=== PATIENT | female | born 1955 | race Caucasian/White ===

== ENCOUNTER 2017-08-12 06:19 | Inpatient (IN) | payer OTHER ==
[2017-08-12] VITALS (7 sets, daily range): BP systolic 112–136; BP diastolic 69–88
[~2017-08-12] VITALS: Ht 160 cm; Wt 68.0 kg
--- NOTE | 2017-08-12 12:10 | NUR ---
RECEIVED PT VIA BED FROM RECOVERY ROOM AWAKE AND ALERT. TEMP 97.6. TELE #36 PLACED SINUS RHYTHM 77. RESP 18 EVEN. OXYGEN 2L NC IN PLACE. PULSE OX 100%. ABD SOFT, LOUISE CATH DRAINS YELLOW URINE. NO EDEMA. PULSES PRESENT. SCD IN PLACE. HEMOVAC INPLACE TO RIGHT KNEE. DRESSING CDI TO RIGHT KNEE. C/O "PAIN 18/10". CALL TO DR DE ANDA TO VERIFY PAIN MEDICATION. FAMILY AT BEDSIDE. CALL LIGHT IN REACH.
--- NOTE | 2017-08-12 12:35 | NUR ---
IVF NORMAL SALINE STARTED AT 100CC/HR. IV CLEOCIN COMPLETED FROM RECOVERY ROOM. MED WITH DILAUDID 1MG IVP ORDERED FOR PAIN. CALL LIGHT IN REACH. WILL CONTINUE TO MONITOR.
--- NOTE | 2017-08-12 13:00 | NUR ---
PT MORE RELAXED. STATES "PAIN LEVEL DOWN TO 10/10 SLOWLY COMING DOWN." WILL CONTINUE TO MONITOR.
--- NOTE | 2017-08-12 14:23 | NUR ---
PT CONTINUES TO C/O RIGHT KNEE POST OP DISCOMFORT NOT RELIEVED BY MEDICATION GIVEN. MED BY RAMIREZ STUBBS ORDERED. WILL CONTINUE TO MONITOR.
--- NOTE | 2017-08-12 15:08 | NUR ---
PT CONTINUES TO C/O PAIN TO RIGHT KNEE POST OP "SHOOTING PAIN 07/14." DR JOSE HERE. REVIEWED PAIN MEDICATION REGIMEN. MED WITH TORADOL 30MG IVP ORDERED. FAMILY AT BEDSIDE. INSTRUCTED WITH USE OF INCENTIVE SPIROMETER. GOOD RETURN DEMO TO 1500 INITIALLY. STATES "HAS ASTHMA." TRAPEZE SET UP. AWAITING CPM DEVICE.
--- NOTE | 2017-08-12 15:31 | NUR ---
PT CONTINUES TO REPORT "SHOOTING PAIN 07/14. NO RELIEF FROM OTHER MEDS." DR JOSE HERE. MED WITH PERCOCET PO ORDERED. TAKING WATER AND SALTINE CRACKERS. REFUSES FOOD AT THIS TIME. IV CONTINUES PATENT. HISTORY OBTAINED. CALL LIGHT IN REACH.
--- NOTE | 2017-08-12 16:36 | NUR ---
PT CONTINUES TO C/O POST OP RIGHT KNEE "PAIN 10/10 SHO[address] PAIN UP LEG." DR JOSE HERE. DILAUDID INCREASED. MED WITH DILAUDID 2MG IVP AT THIS TIME. UPDATED DR JOSE ON PT STATUS. HEMOVAC DRAINAGE 200CC SINCE SURGERY, NONE IN LAST 2 HOURS. LOUISE DRAINING WELL. FAMILY REQUESTS SLEEPING PILL FOR PT FOR TONIGHT. USES INCENTIVE SPIROMETER WELL.
--- NOTE | 2017-08-12 16:55 | NUR ---
P.T. NOTES APPLIED CPM (R)LE, SETTING AT 0-20 deg FOR NOW, UNABLE TO TOLERATE 30 deg DUE TO PAIN, PRE MEDICATED; NURSE AWARE; ENDORSED TO NURSING TO TURN ON CPM WHEN Pt IS AGREEABLE & PAIN MORE CONTROLLED, REMOVE CPM AROUND 10pm; DAUGHTER (ELMER) & Pt EDUC ON CPM USE; CALL TORRES, PHONE, TABLE IN REACH; OHT SET UP DONE BY MD RESIDENT; BED ALARM ON; SCDs RE APPLIED; FOLLOW UP TOMORROW. CPM SETUP,PVE(ASSIST,SAFETY)
--- NOTE | 2017-08-12 17:00 | NUR ---
PT RESTING DROWSY BUT AROUSABLE. ABLE TO USE INCENTIVE SPIROMETER WITH ENCOURAGEMENT. REPORTS "PAIN BETTER, NOW DOWN TO 8/10." CPM TURNED ON AT THIS TIME WITH 20 DEGREES FLEXION. DTR AT BEDSIDE. CALL LIGHT IN REACH.
--- NOTE | 2017-08-12 18:27 | NUR ---
PT REPORTS "PAIN DOWN TO 5/10. C/O MILD NAUSEA." NO EMESIS. MED WITH ZOFRAN 4MG IVP. HR=83. CD=074/78. FAMILY AT BEDSIDE. TAKING WATER AND SALTINE CRACKERS. SOUP ORDERED. JELLO GIVEN. CALL LIGHT IN REACH.
--- NOTE | 2017-08-12 18:40 | NUR ---
PT REPORTS "NAUSEA A LITTLE BETTER, TAKING SIPS OF WATER AND SOUP." TC TO DR DE ANDA TO UPDATE PT STATUS. TO KEEP CPM SETTINGS 0 DEGREES EXTENSION AND 60 DEGREES FLEXION. TURN OFF WHEN ASLEEP. KEEP HEMOVAC EXPANDED, NO SUCTION. CPM INCREASED AT THIS TIME TO 0-40 DUE TO INCREASED PAIN WITH FLEXION. WILL INCREASE WITH NEXT PAIN MEDICATION ADMINISTRATION. PT IN AGREEMENT. AM LABS ORDERED. CALL LIGHT IN REACH.
--- NOTE | 2017-08-12 19:40 | NUR ---
PT SEEN, RESTING IN BED, ALERT AND ORIENTED, DENIES HEADACHE OR DIZZINESS, BREATHING EVEN AND UNLABORED, NO SOB, LUNG SOUNDS CLEAR, ON ROOM AIR WITH NO RESP DISTRESS NOTED, IS-2000ML, IVF INFUSING WELL, ON TELE#36 NSR, DENIES CHEST PAIN, PULSES PALPABLE, NO EDEMA NOTED, 08/12 S/P RT KNEE REPLACEMENT WITH AZEB WRAP AND DRESSING, CPM MACHINE-0 TO 40 DEGREE, HEMOVAC IN PLACE DRAINING BLOODY OUTPUT, ABD ROUND WITH ACTIVE BS, NO BM AT THIS TIME, DENIES ABD PAIN, LOUISE VIA GRAVITY DRAINING YELLOW URINE, FAMILY AT BEDSIDE, TRAPEZE IN PLACE, NO DISTRESS NOTED, WILL KEEP TO MONITOR.
--- NOTE | 2017-08-12 20:50 | NUR ---
[employer] MEMBER CALLED THAT PT HAD 1.5 SECS PAUSES ON TELE MONITOR, WENT TO PT'S ROOM, PT ALERT AND ORIENTED X 4 BUT C/O OF DIZZINESS AFTER MEDICATED WITH DILAUDID 2MG VIA IVP, MADE DR ROBLEDO AWARE, DILAUDID CHANGED TO 1.5MG PER PT REQUESTED.
--- NOTE | 2017-08-12 22:00 | NUR ---
INCREASED PT'S CPM MACHINE TO 60 DEGREE, PT TOLERATED WELL, WILL KEEP TO MONITOR.
--- NOTE | 2017-08-13 | NUR ---
TURN OFF CPM MACHINE AT THIS TIME, PT ASLEEP BUT EASILY AROUSABLE, DENIES ANY PAIN OR DISCOMFORT AT THIS TIME, PT REFUSED TO REMOVE CPM MACHINE STATED THAT SHE FEELS COMFORTABLE WITH 0 DEGREE ON CPM, NO DISTRESS NOTED, WILL KEEP TO MONITOR.
--- NOTE | 2017-08-13 02:08 | NUR ---
PT AWAKE AND C/O OF RT KNEE PAIN, PERCOCET 1 TAB VIA ORAL ADMINISTERED.
--- NOTE | 2017-08-13 02:30 | NUR ---
PT CALLED AND STATED THAT RT KNEE PAIN IS AT 20/10 AFTER MEDICATED WITH PERCOCET PO, BP-133/66, HR-90, SPO2-96%, DILAUDID 1.5MG VIA IVP ADMINISTERED AND ZOFRAN 4MG VIA IVP FOR NAUSEOUS, ICE PACK APPLIED.
--- NOTE | 2017-08-13 03:40 | NUR ---
ROUNDS MADE, PT AWAKE AND RESTING IN BED, DENIES ANY PAIN OR DISCOMFORT MEDICATED WITH DILAUDID IVP, NO DISTRESS NOTED, WILL KEEP TO MONITOR.
[2017-08-13 06:21] VITALS: BP 109/62
--- NOTE | 2017-08-13 06:33 | NUR ---
PT AWAKE AND C/O OF PAIN TO RT KNEE SURGERY SITE, DILAUDID 1.5MG AND ZOFRAN ADMINISTERED VIA IVP, RE-STARTED CPM MACHINE 0-35 DEGREE PER PT'S REQUEST, LOUISE CARE GIVEN, TOTAL OUTPUT FROM HEMOVAC 100ML BLOODY COLOR, SCD TO BLE, FAMILY AT BEDSIDE, WILL KEEP TO MONITOR.
--- NOTE | 2017-08-13 07:05 | NUR ---
BEDSIDE HANDOFF. CPM 0-45 WAS INCREASED TO 0-50. ALERT AND ORIENTED. AZEB WRAP CDI. HEMOVAC NOT TO SUCTION. GOOD CMS TO BLE. ICE PACKS IN PLACE AROUND KNEE. IVF NS @ ![address] LOUISE TO GRAVITY. TELE 36. FAMILY BEDSIDE. CALL LIGHT WITHIN REACH.
[2017-08-13 07:26] LABS: BASOPHIL % 0.2 % (0-2); PLATELET COUNT 251 x10^3mcL (130-400); RED CELL DISTRIBUTION WIDTH 12.5 % (11.5-14.5)
--- NOTE | 2017-08-13 07:35 | NUR ---
CPM INCREASED 0-55. TOLERATING.
[2017-08-13 07:52] LABS: ALKALINE PHOSPHATASE 47 U/L (46-116); ALT/SGPT 31 U/L (14-59); AMYLASE 32 U/L (25-115); AST/SGOT 20 U/L (15-37); BILIRUBIN TOTAL 0.68 mg/dL (0.20-1.00); CALCIUM 7.7 mg/dL (8.5-10.1); CARBON DIOXIDE 26.1 mmol/L (21-32); CHLORIDE SERUM 100 mmol/L (98-107); CHOLESTEROL 170 mg/dL (<200); CHOLESTEROL/HDL RATIO 2.9; CREATININE SERUM 0.7 mg/dL (0.6-1.0); GFR1 > 60 mL/min; GLUCOSE SERUM 117 mg/dL (74-106); HDL CHOLESTEROL 58 mg/dL (40-60); LIPASE 80 IU/L (73-393); MAGNESIUM 1.8 mg/dL (1.8-2.4); PHOSPHOROUS 3.4 mg/dL (2.5-4.9); POTASSIUM SERUM 4.2 mmol/L (3.5-5.1); SODIUM SERUM 132 mmol/L (136-145); TRIGLYCERIDES 75 mg/dL (<150)
[2017-08-13 07:57] LABS: ALBUMIN 2.9 g/dL (3.4-5.0); TOTAL PROTEIN, SERUM 5.8 g/dL (6.4-8.2)
[2017-08-13 08:16] LABS: FREE T4 1.7 ng/dL (0.76-1.46); FREE THYROXINE INDEX 4.7 ug/dL (1.4-4.5); T3 TOTAL 0.86 ng/mL; T4(THYROXINE) 11.2 ug/dL (4.7-13.3)
[2017-08-13 09:53] VITALS: BP 121/59
--- NOTE | 2017-08-13 10:03 | NUR ---
CPM increased to 60, patient tolerating well. administered zofran and diluadid prn as ordered for nausea and pain of 9/10. Saucedo removed, patient tolerated well. Educated patient to report any painful urination or discomfort. bed in lowest position, call light within reach, 2 rails up. family at bedside.
--- NOTE | 2017-08-13 10:16 | NUR ---
HEPLOCKED TO WORK WITH PT.
--- NOTE | 2017-08-13 10:27 | NUR ---
UP WITH PT, WALKED A FEW STEPS, NAUSEAOUS, UP IN RECLINER.
--- NOTE | 2017-08-13 10:52 | NUR ---
REQUESTING TO GO BACK TO BED, PT MADE AWARE.
--- NOTE | 2017-08-13 11:13 | NUR ---
PATIENT AMBULATED KAUR WITH PT. VOMITTED AFTERWARDS. PHYSICAL THERAPY STATED REMOVES CPM MACHINE TO LET HER "REST" AND WILL COME BACK AFTER 1200 TO PUT HER BACK ON.
--- NOTE | 2017-08-13 12:23 | NUR ---
REQUESTED ANOTHER ANTI-EMETIC. SIDE EFFECTS OF PHENERGAN EXPLAINED, DECIDED TO STAY WITH ZOFRAN.
--- NOTE | 2017-08-13 13:19 | NUR ---
DR COLMENARES SAW PATIENT. DC'D HEMOVAC. PT TOLERATED WELL. WILL ASSESS FOR PAIN AND MEDICATE PRN.
[2017-08-13 13:48] VITALS: BP 123/29
--- NOTE | 2017-08-13 14:30 | NUR ---
PT IN TO WORK WITH PATIENT. CPM SETTING NOW 0-70.
--- NOTE | 2017-08-13 14:57 | NUR ---
PT NOTE 1415 INSERVICE FOR RNs ON PROPER AND SAFE SET-UP AND REMOVAL OF CPM, INCLUDING PROPER JOINT ALIGNMENT TO CPM, SAFE TECHNIQUE IN PAUSING MACHINE, PROPER HEIGHT OF HEAD OF BED WHILE MACHINE IS ON, SIDERAIL UP, AND LOCK BUTTON FOR ELEVATING LEGS; UNDERSTANDING NOTED. PVE(1)
[2017-08-13 17:45] VITALS: BP 122/59
--- NOTE | 2017-08-13 18:28 | NUR ---
PT AWAKE AND ORIENTED. REINFORCED TEACHING ON IS USE. PT STATED PAIN WAS 4/10, MEDICATED WITH DILUADID PRN ORDERED. FAMILY AT BEDSIDE, BED IN LOWEST POSITION, CALL LIGHT WITHIN REACH, 2 RAILS UP. DENIES NUMBNESS IN LOWER EXTREMITIES, ABLE TO WIGGLE TOES.
--- NOTE | 2017-08-13 19:10 | NUR ---
PT SEEN, RESTING IN BED, ALERT AND ORIENTED, DENIES HEADACHE OR DIZZINESS, BREATHING EVEN AND UNLABORED, NO SOB, LUNG SOUNDS CLEAR, ON ROOM AIR WITH NO RESP DISTRESS NOTED, IS-2000ML, IVF INFUSING WELL, MEDSURG PT, DENIES CHEST PAIN, PULSES PALPABLE, NO EDEMA NOTED, 08/12 S/P RT KNEE REPLACEMENT WITH AZEB WRAP AND DRESSING, CPM MACHINE-0 TO 70 DEGREE, ABD ROUND WITH ACTIVE BS, NO BM AT THIS TIME, DENIES ABD PAIN, VOIDING FREELY WITH BEDPAN, TRAPEZE IN PLACE, NO DISTRESS NOTED, WILL KEEP TO MONITOR.
[2017-08-13 21:10] VITALS: BP 112/54
[2017-08-13 21:15] VITALS: BP 115/73
--- NOTE | 2017-08-13 23:26 | NUR ---
ASSISTED PT TO USE BEDPAN, PERICARE GIVEN, CPM MACHINE TURN OFF AT THIS TIME, PERCOCET 1 TAB VIA ORAL ADMINISTERED.
[2017-08-14 06:18] VITALS: BP 103/35
--- NOTE | 2017-08-14 06:38 | NUR ---
PT AWAKE AND RESTING IN BED, SLEPT ON AND OFF WHOLE NIGHT, IVF INFUSING WELL, ICE PACK IN PLACE, CONDITION NO CHANGE, NO DISTRESS NOTED, WILL KEEP TO MONITOR.
[2017-08-14 07:23] LABS: CARBON DIOXIDE 29.2 mmol/L (21-32); CHLORIDE SERUM 102 mmol/L (98-107); CREATININE SERUM 0.8 mg/dL (0.6-1.0); GFR1 > 60 mL/min; GLUCOSE SERUM 94 mg/dL (74-106); MAGNESIUM 2.2 mg/dL (1.8-2.4); PHOSPHOROUS 1.9 mg/dL (2.5-4.9); POTASSIUM SERUM 3.8 mmol/L (3.5-5.1); SODIUM SERUM 135 mmol/L (136-145)
--- NOTE | 2017-08-14 07:30 | NUR ---
RECEIVED PATIENT SITTING UP IN BED A/O X4, CLEAR SPEECH, NO NEURO DEFICITS NOTED. DENIES CHEST PAIN OR DISCOMFORT. BREATHING EVEN UNLABBORED ON RA, DENIES SOB, NO DISTRESS NOTED, ENCOUARGED USE OF I.S, DEMONSTRATED PROPER USE AT 2000 ML VOLUME. PATIENT IS S/P RIGHT KNEE REPLACEMENT 08/12/17 WITH DRESSING/AZEB WRAP TO RIGHT KNEE CDI, ICE PACK IN PLACE, STATES PAIN IS 4/10 TO RIGHT KNEE, TOLERABLE AT THIS TIME. CPM AT BEDSIDE, OFF AT THIS TIME, PATIENT REQUESTING TO RESUME CPM AFTER BREAKFAST. IV TO LAC INTACT INFUSING NS AT 20 ML/HR FREE FROM REDNESS AND INFILTRATION. PATIENT IS CALM AND COOPERATIVE WITH CARE. INSTRUCTED TO CALL FOR ASSISTANCE IF NEEDED. CALL LIGHT WITHIN REACH, BED IN LOW POSITION. WILL CONTINUE TO MONITOR AND MAINTAIN SAFETY.
--- NOTE | 2017-08-14 08:29 | NUR ---
PATIENT C/O MILD NAUSEA, ZOFRAN 4 MG IVP Q4H PRN GIVEN AT THIS TIME PER MD ORDER. ALL NEEDS ATTENDED TO. SAFETY PRECAUTIONS MAINTAINED. WILL MONITOR.
[2017-08-14 09:05] LABS: BASOPHIL % 0.4 % (0-2); PLATELET COUNT 223 x10^3mcL (130-400); RED CELL DISTRIBUTION WIDTH 12.9 % (11.5-14.5)
--- NOTE | 2017-08-14 09:21 | NUR ---
ROUNDS MADE- DR. RODAS, RESIDENT TEAM, CHARGE NURSE AND PRIMARY NURSE AT BEDSIDE. POC REVIEWED WITH PATIENT- PLAN IS FOR PATIENT TO BE DISCHARGED HOME TODAY WITH HOME HEALTH PHYSICAL THERAPY. PATIENTS PAIN IS TOLERABLE AT THIS TIME, AND WILL BE SENT HOME WITH A PRESCRIPTION FOR ORAL PAIN MEDICATION. ALL QUESTIONS AND CONCERNS ADDRESSED. DR. WEBER MADE AWARE OF PHOS 1.9, NO NEW ORDERS RECEIVED. WILL CONTINUE TO MONITOR.
[2017-08-14 10:20] VITALS: BP 124/70
--- NOTE | 2017-08-14 10:35 | NUR ---
DR. DE ANDA AT BEDSIDE TO CLEAN SURGICAL INCISION TO RIGHT KNEE AND DO DRESSING CHANGE. PATIENT SITTING UP IN CHAIR AT BEDSIDE COMFORTABLY, NO DISTRESS NOTED. TOLERATED DRESSING CHANGE WELL. SAFETY PRECAUTIONS MAINTAINED. WILL MONITOR.
[2017-08-14] MEDS ORDERED: BAYER ASPIRIN R81 MG PO (10:36)
[2017-08-14] MEDS ORDERED: APAP/OXYCODONE1 TA4 PO (10:49)
[2017-08-14] MEDS ORDERED: ZOFRAN ODT4 MG SL (10:50)
[2017-08-14 11:59] VITALS: BP 124/70
--- NOTE | 2017-08-14 12:06 | NUR ---
PATIENT C/O SHARP PAIN TO RIGHT KNEE 7/10, PERCOCET 10/325 1 TAB PO Q6H PRN GIVEN AT THIS TIME FOR PAIN. PATIENT PLACED BACK ON CPM MACHINE, ALL NEEDS ATTENDED TO, MADE COMFORTABLE. SAFETY PRECAUTIONS MAINTAINED. WILL MONITOR.
--- NOTE | 2017-08-14 15:27 | NUR ---
PHYSICAL THERAPY DAILY NOTES CO-SIGN All documentation done by the Communications Billing Analyst for 08/14/17 has been reviewed. I agree with the documentation. I CONCUR WITH AM AND PM CAR DISTRIBUTOR NOTE; Pt IS SHOWING PROGRESS WITH POC, WILL CONT TO BENEFIT W/PT Reviewed/Co-Signed by: Susanne Argueta V PT Documentation Done by: ANNIA ARMIJO PTA
--- NOTE | 2017-08-14 15:35 | NUR ---
PATIENT C/O SHARP PAIN TO RIGHT KNEE 05/14, MOTRIN 800 MG PO Q8H PRN GIVEN AT THIS TIME PER MD ORDER. ALL NEEDS ATTENDED TO. SAFETY PRECAUTIONS MAINTAINED. WILL MONITOR.
--- NOTE | 2017-08-14 17:00 | NUR ---
PATIENT IS STABLE FOR DISCHARGE HOME WITH HOME HEALTH PHYSICAL THERAPY PER MD ORDER. DISCHARGE INSTRUCTIONS, PRESCRIPTION, BELONGINGS LIST AND EDUCATION GIVEN TO PATIENT. PATIENT VERBALIZED UNDERSTANDING TO FOLLOW UP WITH DR. DE ANDA ON 08/19/17 AND PCP ON 08/20/17. CPM MACHINE IS GOING TO BE DELIVERED TO PATIENTS HOME. WALKER DELIVERED AT BEDSIDE. ALL QUESTIONS AND CONCERNS ADDRESSED. IV TO LAC REMOVED, CATH INTACT. ID BANDS REMOVED. PATIENT ASSISTED DOWN TO LOBBY VIA WHEELCHAIR ACCOMPANIED BY , DAUGHTERS X2, AND BEATRICE OROURKE. ALL PERSONAL BELONGINGS SENT HOME WITH PATIENT.
== END 2017-08-14 17:05 | disposition home health service (06) | DRG 470 ==
LOC: MU 06:19 → DU 17:00 → MU 08-13 19:05
PROVIDERS: Family Medicine Sports Medicine; Neuromusculoskeletal Medicine, Sports Medicine; ADMIT Family Medicine
PROC: 0SRC0JZ Replacement of Right Knee Joint with Synthetic Substitute, Open Approach (ICD-10-PCS; principal; 2017-08-12 07:30)
DX: M17.11 Unilateral primary osteoarthritis, right knee (principal); E87.1 Hypo-osmolality and hyponatremia; D64.9 Anemia, unspecified; I10 Essential (primary) hypertension; K58.9 Irritable bowel syndrome, unspecified; E78.5 Hyperlipidemia, unspecified; Z68.26 Body mass index [BMI] 26.0-26.9, adult
CPT/HCPCS: 83880; 84439; 97110-GP; 97116-GP; 97139; 97530-GP; C1713; C1776; J0690; J1170; J1650; J1885; J2250; J2270; J2405; J2704; J3010; J3490; J7030; J7120; Q0092

== ENCOUNTER 2018-08-30 06:54 | Observation (INO) | payer OTHER ==
[~2018-08-30] VITALS: Ht 162.6 cm; Wt 70.3 kg
[~2018-08-30 06:54] MED LIST: APAP/OXYCODONE1 TA4 PO; BAYER ASPIRIN R81 MG PO; ZOFRAN ODT4 MG SL
[2018-08-30 07:04] VITALS: BP 130/77
[2018-08-30 14:40] VITALS: BP 100/64
[2018-08-30 15:32] VITALS: BP 111/61
[2018-08-30 20:24] VITALS: BP 114/56
[2018-08-31 04:53] VITALS: BP 91/55
[2018-08-31 05:57] LABS: BASOPHIL % 0.3 % (0-2); PLATELET COUNT 219 x10^3mcL (130-400); RED CELL DISTRIBUTION WIDTH 11.9 % (11.5-14.5)
[2018-08-31 06:23] LABS: CALCIUM 8.3 mg/dL (8.5-10.1); CHLORIDE SERUM 101 mmol/L (98-107); CREATININE SERUM 0.8 mg/dL (0.6-1.0); GFR1 > 60 mL/min; GLUCOSE SERUM 108 mg/dL (74-106); POTASSIUM SERUM 3.9 mmol/L (3.5-5.1); SODIUM SERUM 138 mmol/L (136-145)
[2018-08-31 08:04] VITALS: BP 100/60
[2018-08-31 14:34] VITALS: BP 201/68
[2018-08-31 17:35] VITALS: BP 102/58
[2018-08-31 18:46] VITALS: BP 186/69
[2018-08-31 22:04] VITALS: BP 118/57
[2018-09-01 05:38] VITALS: BP 104/62
[2018-09-01 10:01] VITALS: BP 125/75
[2018-09-01 15:50] VITALS: BP 125/75
== END 2018-09-01 16:30 | disposition home or self-care (01) | DRG 470 ==
LOC: MU 06:54
PROVIDERS: Neuromusculoskeletal Medicine, Sports Medicine
PROC: 0SRD069 Replacement of Left Knee Joint with Oxidized Zirconium on Polyethylene Synthetic Substitute, Cemented, Open Approach (ICD-10-PCS; principal; 2018-08-30 08:30)
DX: M17.12 Unilateral primary osteoarthritis, left knee (principal); M21.162 Varus deformity, not elsewhere classified, left knee; I10 Essential (primary) hypertension; J45.909 Unspecified asthma, uncomplicated; Z96.651 Presence of right artificial knee joint
CPT/HCPCS: 97110-GP; 97116-GP; 97139; 97530-GP; C1776; G0378; J1170; J1650; J1885; J2274; J2405; J2704; J3490; J7030; J7040; J7120; Q0092